=== PATIENT | female | born 1930 | race Caucasian/White ===

== ENCOUNTER 2017-04-21 17:23 | Emergency (ER) | payer MEDICARE, OTHER ==
[~2017-04-21] VITALS: Ht 149.9 cm; Wt 60.6 kg
[~2017-04-21 17:23] MED LIST: 1-ME1LIQ PO; CALCTAB92 PO; GLUC500C4 PO; HYDR-2768 PO; LEVO50TA4 PO; LISI-360 PO; METO50TA PO; OMEP20TA39 PO; PRAV80 PO; TAB-TAB PO; VITA-13 PO; XANA0.5T PO
[2017-04-21 17:29] VITALS: BP 167/74; PULSE 101; RESP 18; TEMP 99.4; O2SAT 98
[2017-04-21] MEDS ORDERED: HYDR12.56 PO (18:22)
[2017-04-21] MEDS ORDERED: OMEP20TA93 PO (18:22)
[2017-04-21] MEDS ORDERED: LISI10TA3 PO (18:22)
[2017-04-21] MEDS ORDERED: AMLO10TA2 PO (18:22)
[2017-04-21] MEDS ORDERED: LEVO50TA4 PO (18:22)
[2017-04-21] MEDS ORDERED: METO1TAB9 PO (18:22)
--- NOTE | 2017-04-21 18:28 | PD ---
HPI Chief Complaint: Back/ Neck Pain or Injury Time Seen by Provider: 18:15 Travel History International Travel<30 days: No Contact w/Intl Traveler<30days: No Traveled to known affect area: No History of Present Illness HPI 86-year-old active female presents emergency Department with right- sided low back pain with sciatic symptoms. Patient has had this in the past. Denies any specific injury. Patient states it started a couple days ago and is worsened. Patient is been taking Tylenol without improvement. Denies numbness , tingling, or weakness. Denies urinary or bowel issues. Pain is currently 8 out of 10. Patient states she is allergic to sulfa, codeine, cyclobenzaprine, hydrocodone, penicillin, tramadol, and cortisone, however she has taken prednisone in the past with good results. PFSH Past Medical History Arthritis: Yes Autoimmune Disease: No Cancer: No Cardiovascular Problems: No High Cholesterol: Yes Diabetes: No Diminished Hearing: No Diverticulitis: Yes Endocrine: Yes Gastrointestinal Disorders: Yes (GERD, HX IBS, DIVERTICULOSIS) GERD: Yes Genitourinary: No Hepatitis: No Hiatal Hernia: No Hypertension: Yes Immune Disorder: No Musculoskeletal: Yes (DDD, SPINAL STENOSIS, ARTHRITIS) Neurologic: No Psychiatric: Yes (CLAUSTRAPHOBIA, ANXIETY) Reproductive: No Respiratory: No Immunizations Current: Yes Thyroid Disease: Yes Triglycerides - High: Yes Tetanus Vaccination: > 5 Years Influenza Vaccination: No ?: Not Past Surgical History Abdominal Surgery: Yes (DIAG. LAPAROSCOPY (DIVERTICULITIS)) AICD: No Eye Surgery: Yes (LEFT CATARACT EXTRACT) Genitourinary Surgery: No Gynecologic Surgery: No Joint Replacement: No Pacemaker: No Other Surgery: Yes (veins) Social History Alcohol Use: No Tobacco Use: No Substance Use: No Allergies-Medications (Allergen,Severity, Reaction): Coded Allergies: cyclobenzaprine (Unverified Allergy, Severe, HALLUCINATIONS, 04/21/17) Sulfa (Sulfonamide Antibiotics) (Unverified Allergy, Unknown, 04/21/17) codeine (Unverified Allergy, Unknown, 04/21/17) cortisone (Unverified Allergy, Unknown, 04/21/17) penicillin G (Unverified Allergy, Unknown, 04/21/17) hydrocodone (Unverified Adverse Reaction, Severe, N & V, 04/21/17) tramadol (Unverified Adverse Reaction, Unknown, 04/21/17) Reported Meds & Prescriptions Reported Meds & Active Scripts Active Prednisone 20 Mg Tab 20 Mg PO BID 5 Days Reported Levothyroxine (Levothyroxine Sodium) 50 Mcg Tab 50 Mcg PO DAILY Omeprazole 20 Mg Tab 20 Mg PO DAILY Hydrochlorothiazide 12.5 Mg Tab 12.5 Mg PO QOD Metoprolol Succinate ER 24 HR (Metoprolol Succinate) 50 Mg Tab 75 Mg PO DAILY Amlodipine (Amlodipine Besylate) 10 Mg Tab 10 Mg PO DAILY Lisinopril 10 Mg Tab 10 Mg PO DAILY Review of Systems Except as stated in HPI: all other systems reviewed are Neg General / Constitutional: No: Fever Eyes: No: Visual changes HENT: No: Headaches Cardiovascular: No: Chest Pain or Discomfort Respiratory: No: Shortness of Breath Gastrointestinal: No: Abdominal Pain Genitourinary: No: Dysuria Musculoskeletal: Positive: Arthralgias, Limited ROM, Pain Skin: No Rash Neurologic: No: Weakness Psychiatric: No: Depression Endocrine: No: Polydipsia Hematologic/Lymphatic: No: Easy Bruising Physical Exam Narrative GENERAL: Patient appears uncomfortable and in mild to moderate distress SKIN: Warm and dry. Normal color. Normal turgor. No rash. HEAD: Atraumatic. Normocephalic. EYES: Pupils equal and round. No scleral icterus. No injection or drainage. ENT: No nasal bleeding or discharge. Mucous membranes pink and moist. Pharynx is clear. NECK: Trachea midline. Supple nontender. CARDIOVASCULAR: Regular rate and rhythm. RESPIRATORY: No accessory muscle use. Clear to auscultation. Breath sounds equal bilaterally. GASTROINTESTINAL: Abdomen soft, non-tender, nondistended. Hepatic and splenic margins not palpable. MUSCULOSKELETAL: Extremities without clubbing, cyanosis, or edema. No obvious deformities. Patient has pain with palpation along the right side lumbar spine into the sciatic notch. Patient has no weakness in the lower extremities. Straight leg raise pain is not significantly positive bilaterally. NEUROLOGICAL: Awake and alert. No obvious cranial nerve deficits. Motor grossly within normal limits. Five out of 5 muscle strength in the arms and legs. Normal speech. PSYCHIATRIC: Appropriate mood and affect; insight and judgment normal. Data Data Last Documented VS Vital Signs Date Time Temp Pulse Resp B/P (MAP) Pulse Ox O2 Delivery O2 Flow Rate FiO2 04/21/17 17:29 99.4 101 18 167/74 (105) 98 Orders Orders Ketorolac Inj (Toradol Inj) (04/21/17 18:30) Prednisone (Deltasone) (04/21/17 18:30) Ed Discharge Order (04/21/17 18:29) [facility] Medical Decision Making Medical Screen Exam Complete: Yes Emergency Medical Condition: Yes Medical Record Reviewed: Yes Differential Diagnosis Low back pain. Sciatica. Sacroiliitis. Narrative Course Patient is medically stable at time of exam. Patient is given Toradol 30 mg IM. Patient is given prednisone 40 mg by mouth. Patient be continued on prednisone 20 mg twice a day 5 days per Patient take Tylenol as well as needed for pain. Patient should follow-up if symptoms do not improve or worsen as discussed. Diagnosis Primary Impression: Lumbago with sciatica, right side Qualified Codes: M54.41 - Lumbago with sciatica, right side Referrals: Primary Care Physician Patient Instructions: General Instructions, Lower Back Exercises (ED), Lumbar Radiculopathy (ED) Additional Instructions: Patient is given Toradol 30 mg IM. Patient is given prednisone 40 mg by mouth. Patient be continued on prednisone 20 mg twice a day 5 days per Patient take Tylenol as well as needed for pain. Patient should follow-up if symptoms do not improve or worsen as discussed. Med/Other Pt SpecificInfo: Prescription(s) given Scripts Prednisone (Prednisone) 20 Mg Tab 20 MG PO BID for 5 Days, #10 TAB 0 Refills Prov: Juan Feng MD 04/21/17 Disposition: 01 DISCHARGE HOME Condition: Stable Gregorio Palmer Apr 21, 2017 18:28
[2017-04-21] MEDS ORDERED: PRED20 PO (18:29)
[2017-04-21] MEDS ORDERED: predniSONE 20 MG TAB PO ONE (18:30)
[2017-04-21] MEDS ORDERED: KETOROLAC TROMETHAMINE 60 MG/2 ML (IM) VIAL IM ONE (18:30)
== END 2017-04-21 18:48 | disposition home or self-care (01) ==
LOC: PHED 17:23 → PHEFT 18:48
DX: M54.41 Lumbago with sciatica, right side (principal); M19.90 Unspecified osteoarthritis, unspecified site; E78.00 Pure hypercholesterolemia, unspecified; I10 Essential (primary) hypertension; M48.00 Spinal stenosis, site unspecified
CPT/HCPCS: 96372; 99284; J1885; J7512